=== PATIENT | male | born 1950 | race Caucasian/White ===

== ENCOUNTER 2016-12-02 20:58 | Emergency (ER) | payer OTHER ==
--- NOTE | 2016-12-02 21:21 | ERNOTE ---
Medical Problem HPI - Narrative Date of Service: 12/02/16 - General Chief Complaint: General Assessment Time Seen by Provider: 12/02/16 21:06 Source: patient, family - Immun/Allergies/Home Medications Immunizations: IMMUNIZATION HX Immunizations Up to Date Yes History of Influenza Vaccine No Hx Pneumococcal Vaccination No Allergies/Adverse Reactions: Allergies allopurinol Allergy (Verified 02/21/16 13:38) sulfamethoxazole [From Bactrim] Allergy (Verified 02/21/16 13:38) trimethoprim [From Bactrim] Allergy (Verified 02/21/16 13:38) Home Medications: HOME MEDICATIONS Albuterol Sulfate [Proair Respiclick] 90 mcg IH QID PRN 02/21/16 [Last Taken Unknown] Cholecalciferol (Vitamin D3) [Vitamin D3] 2,000 unit PO DAILY 02/21/16 [Last Taken Unknown] FLUoxetine HCL [Prozac] 40 mg PO DAILY 02/21/16 [Last Taken Unknown] Ferrous Sulfate [Iron] 325 mg PO BID 02/21/16 [Last Taken Unknown] HYDROcodone/ACETAMINOPHEN [Lortab 5-325 mg Tablet] 1 each PO Q4H PRN 02/21/16 [ Last Taken Unknown] Ibrutinib [Imbruvica] 420 mg PO DAILY 02/21/16 [Last Taken Unknown] Insulin Glargine,Hum.rec.anlog [Lantus] 20 unit SQ HS 02/21/16 [Last Taken Unknown] Sodium Bicarbonate 1,300 mg PO BID 02/21/16 [Last Taken Unknown] Insulin Aspart [Novolog] 1,000 units SQ TID 12/02/16 [Last Taken Unknown] - History of Present History Narrative: 66 year old that complains of lethargy, dyspnea with exertion, green discharge from the supra pubic catheter and diarrhea for three weeks. Diagnosed with leukemia in 2004. Also has had C diff 4-5 times previously. He is able to drink fluids but has difficulty swallowing hard foods, for several years. Timing: constant Severity: moderate Modifying Factors - (Improves): Present: other - nothing Modifying Factors - (Worsens): Present: other - exertion Review of Systems - Review of Systems Constitutional: Present: recent illness EYE: Present: no symptoms reported ENT: Present: no symptoms reported Respiratory: Present: no symptoms reported Cardiology: Present: no symptoms reported Gastrointestinal/Abdominal: Present: no symptoms reported Genitourinary: Present: See HPI Musculoskeletal: Present: no symptoms reported Skin: Present: rash - at buttocks Neurological: Present: no symptoms reported Endocrine: Present: no symptoms reported Hematologic/Lymphatic: Present: See HPI Psych: Present: no symptoms reported - Patient's Past Medical History Patient History - Medical: Diabetes Type 1, Kidney stone, UTI'S, Other Patient History - Cardiac/Respiratory: Asthma Patient History - Cancer: Leukemia, Skin Patient History - Surgical Procedures: Cancer Surgery, Other Patient History - Other: Immunosuppresive Tx >3mo - Family History Mother Family History - Medical: No pertinent hx Family History - Cardiac/Respiratory: No pertinent hx Father Family History - Medical: No pertinent hx Family History - Cardiac/Respiratory: No pertinent hx - Social History Living Situations: spouse Psych History: No pertinent hx Does anyone smoke in the home?: No Smoking Status: Never smoker Alcohol Use: none Drug Use: none - Immunizations Immunizations Up to Date: Yes Hx Pneumococcal Vaccination: No History of Influenza Vaccine: No Physical Exam - Physical Exam Narrative: Gaunt, but pleasant and jovial. General Appearance: Present: no apparent distress Eye Exam: Normal inspection: bilateral Ears, Nose, Throat: Present: normal ENT inspection Neck: Present: normal inspection Respiratory: Present: no respiratory distress Cardiovascular/Chest: Present: regular rate, rhythm Gastrointestinal/Abdominal: Present: nontender Back Exam: Present: normal inspection Extremity Exam: Present: normal inspection Neurological Exam: Present: alert, oriented Skin Exam: Present: normal color ED Progress - Results and Orders Patient's Lab Results:: I have reviewed the patient's lab results. - Vital Signs Patient's Vital Signs:: I have reviewed the patient's vital signs. Vital Signs: Vital Signs 12/02/16 21:04 Temperature 36.5 C Pulse Rate 100 Respiratory 16 Rate Blood Pressure 95/55 O2 Sat by Pulse 99 Oximetry - Progress/Reassessment Chief Complaint: General Assessment Progress:: Improved Progress Note-Subjective: 12/03/16 01:18 Feeling better after the third liter of IV fluid. Show better facial color and has more activity. The patient reports that there have been other instances where the WBC count was in the hundreds. No complaints of fevers or chills. The urine showed 4+ bacteria, which is likely to be a chronic infection of which he is asymptomatic. 12/03/16 01:45 Drinking fluids. Departure - Departure Clinical Impression: Volume depletion Disposition: Home self-care Condition: Fair Instructions: Dehydration, Adult, [id number] Print Language: Congolese Additional Instructions: Follow up with your oncologist next week. Return to the ED if you begin to feel sick or develop fevers.
[2016-12-02] MEDS ORDERED: NORMAL SALINE 1,000 ML IV ONE ×2 (21:22→23:04)
[2016-12-02 21:34] LABS: Hematocrit 35.8 % (42.0-52.0); Hemoglobin 10.2 gm/dL (13.5-18.0); Mean Cell Volume 92.3 fl (78-100); Mean Corpuscular Hemoglobin 26.3 pg (27-31); Mean Corpuscular Hgb Conc 28.5 g/dl (32-36); Mean Platelet Volume 9.2 fl (6.0-9.5); Platelet Count 243 K/mm3 (150-450); Red Blood Count 3.88 M/mm3 (4.7-6.0); Red Cell Distribution Width 17.1 % (11.5-14.0); White Blood Count 212.8 K/mm3 (4.0-10.5)
[2016-12-02 21:43] LABS: Anion Gap 19.2 mmol/L (6.8-13.8); BUN/Creatinine Ratio 17.4 (9.0-21.6); Calcium * 7.9 mg/dL (7.9-10.9); Carbon Dioxide 17.6 mmol/L (24-32.6); Estimated Creat Clear 19.5; Potassium 4.8 mmol/L (3.4-4.6)
[2016-12-02 21:59] LABS: Total Cells Counted 100
[2016-12-02 22:04] LABS: Lymphocyte 97 % (20-51); Neutrophil 3 % (42-75); Neutrophil # 6.4 K/mm3 (1.3-6.0)
[2016-12-02 22:05] LABS: Platelet Estimate Normal (NORMAL); RBC Morphology Normal (NORMAL)
[2016-12-02 22:08] LABS: Smudge Cells 10 /100 WBC (0-0)
[2016-12-02 22:09] LABS: Morphology Comment IMMATURE LYMPHOCYTES
[2016-12-02 22:15] LABS: Urine Bilirubin Negative (NEGATIVE); Urine Blood 250 /ul (NEGATIVE); Urine Ketone Negative (NEGATIVE); Urine Nitrite Negative (NEGATIVE); Urine Protein 100 mg/dL (NEGATIVE); Urine Urobilinogen Normal (NORMAL)
[2016-12-02 22:25] LABS: Urine Appearance Cloudy; Urine Bacteria 4+; Urine Color Yellow; Urine RBC None Seen /hpf (0-5); Urine WBC >50 /hpf (0-5)
[2016-12-02 23:13] LABS: Hematocrit 30.6 % (42.0-52.0); Hemoglobin 8.8 gm/dL (13.5-18.0); Mean Cell Volume 91.6 fl (78-100); Mean Corpuscular Hemoglobin 26.3 pg (27-31); Mean Corpuscular Hgb Conc 28.8 g/dl (32-36); Mean Platelet Volume 9.5 fl (6.0-9.5); Platelet Count 218 K/mm3 (150-450); Red Blood Count 3.34 M/mm3 (4.7-6.0); Red Cell Distribution Width 17.1 % (11.5-14.0)
[2016-12-02 23:27] LABS: White Blood Count 182.4 K/mm3 (4.0-10.5)
[2016-12-02 23:28] LABS: Total Cells Counted 100
[2016-12-02 23:33] LABS: Band 1 % (0-2.0); Neutrophil 3 % (42-75); Neutrophil # 5.5 K/mm3 (1.3-6.0)
[2016-12-02 23:38] LABS: Platelet Estimate Normal (NORMAL)
[2016-12-02 23:39] LABS: Anisocytosis 2+
[2016-12-02 23:41] LABS: Lymphocyte 96 % (20-51)
[2016-12-02 23:42] LABS: Smudge Cells 9 /100 WBC (0-0)
[2016-12-03] MEDS ORDERED: NORMAL SALINE 1,000 ML IV ONE (00:34)
[2016-12-03 01:45] VITALS: BP 114/59
== END 2016-12-03 01:42 | disposition home or self-care (01) ==
LOC: ER 20:58
DX: E86.0 Dehydration (principal); Z85.6 Personal history of leukemia; Z85.828 Personal history of other malignant neoplasm of skin; E10.9 Type 1 diabetes mellitus without complications; Z79.4 Long term (current) use of insulin; Z87.440 Personal history of urinary (tract) infections; Z87.442 Personal history of urinary calculi

== ENCOUNTER 2016-12-05 13:24 | Emergency (ER) | payer OTHER ==
[2016-12-05 13:41] VITALS: BP 118/62
--- NOTE | 2016-12-05 14:08 | ERNOTE ---
Medical Problem HPI - Narrative Date of Service: 12/05/16 - General Chief Complaint: General Assessment Time Seen by Provider: 12/05/16 13:49 Source: patient Exam Limitations: no limitations - Immun/Allergies/Home Medications Immunizations: IMMUNIZATION HX Immunizations Up to Date Yes History of Influenza Vaccine No Hx Pneumococcal Vaccination No Allergies/Adverse Reactions: Allergies allopurinol Allergy (Verified 12/05/16 13:41) sulfamethoxazole [From Bactrim] Allergy (Verified 12/05/16 13:41) trimethoprim [From Bactrim] Allergy (Verified 12/05/16 13:41) Home Medications: HOME MEDICATIONS Albuterol Sulfate [Proair Respiclick] 90 mcg IH QID PRN 02/21/16 [Last Taken Unknown] Cholecalciferol (Vitamin D3) [Vitamin D3] 2,000 unit PO DAILY 02/21/16 [Last Taken Unknown] FLUoxetine HCL [Prozac] 40 mg PO DAILY 02/21/16 [Last Taken Unknown] Ferrous Sulfate [Iron] 325 mg PO BID 02/21/16 [Last Taken Unknown] HYDROcodone/ACETAMINOPHEN [Lortab 5-325 mg Tablet] 1 each PO Q4H PRN 02/21/16 [ Last Taken Unknown] Ibrutinib [Imbruvica] 420 mg PO DAILY 02/21/16 [Last Taken Unknown] Insulin Glargine,Hum.rec.anlog [Lantus] 20 unit SQ HS 02/21/16 [Last Taken Unknown] Sodium Bicarbonate 1,300 mg PO BID 02/21/16 [Last Taken Unknown] Insulin Aspart [Novolog] 1,000 units SQ TID 12/02/16 [Last Taken Unknown] - History of Present History Narrative: 66-year-old male presents to the emergency room after being notified by ER provider that his lab results showed multiple infections agents in his cultures. Patient states that he still feels the same as today. He was here last time. Patient is being seen for home health and has multiple specialists that he sees [facility] the [facility]. Patient denies fever at this time. States he just feels poorly. Date (Duration): 12/05/16 Timing: getting worse Review of Systems - Review of Systems Constitutional: Present: recent illness, weakness, fatigue, malaise. Absent: fever, chills EYE: Present: no symptoms reported ENT: Present: no symptoms reported Respiratory: Present: no symptoms reported. Absent: shortness of breath, cough Cardiology: Present: no symptoms reported Gastrointestinal/Abdominal: Present: no symptoms reported, eating less, drinking less Genitourinary: Present: See HPI - bilateral nephrostomy tube, and suprapubic cath Musculoskeletal: Present: no symptoms reported Skin: Present: no symptoms reported Neurological: Present: no symptoms reported Endocrine: Present: no symptoms reported Hematologic/Lymphatic: Present: no symptoms reported Psych: Present: no symptoms reported - Patient's Past Medical History Patient History - Medical: Diabetes Type 1, Kidney stone, UTI'S, Other Patient History - Cardiac/Respiratory: Asthma Patient History - Cancer: Leukemia, Skin Patient History - Surgical Procedures: Cancer Surgery, Other Patient History - Other: Immunosuppresive Tx >3mo - Family History Mother Family History - Medical: No pertinent hx Family History - Cardiac/Respiratory: No pertinent hx Father Family History - Medical: No pertinent hx Family History - Cardiac/Respiratory: No pertinent hx - Social History Living Situations: spouse Psych History: No pertinent hx Does anyone smoke in the home?: No Smoking Status: Never smoker Have you smoked in the past 12 months: No Alcohol Use: none Drug Use: none - Immunizations Immunizations Up to Date: Yes Hx Pneumococcal Vaccination: No History of Influenza Vaccine: No Physical Exam - Physical Exam General Appearance: Present: wd/wn, alert, no apparent distress, thin, cachetic Eye Exam: Normal inspection: bilateral Ears, Nose, Throat: Present: normal ENT inspection, normal pharynx Neck: Present: normal inspection Respiratory: Present: no respiratory distress, normal breath sounds, chest nontender, lungs clear Cardiovascular/Chest: Present: regular rate, rhythm, no murmur, normal peripheral pulses Gastrointestinal/Abdominal: Present: normal bowel sounds, nontender, soft Back Exam: Present: normal inspection, normal range of motion Extremity Exam: Present: normal inspection, non-tender, no edema Neurological Exam: Present: alert, oriented, normal mood/affect, no motor/ sensory deficits Skin Exam: Present: warm/dry, pallor ED Progress - Results and Orders Patient's Lab Results:: I have reviewed the patient's lab results. Results and Orders: patient has multiple abnormal lab results, elevated WBC - Vital Signs Patient's Vital Signs:: I have reviewed the patient's vital signs. Vital Signs: Vital Signs 12/05/16 13:38 Temperature 36.8 C Pulse Rate 82 Respiratory 12 Rate Blood Pressure 118/62 O2 Sat by Pulse 99 Oximetry - Progress/Reassessment Chief Complaint: General Assessment Progress:: Unchanged Plan - Plan Plan: [facility] managed care coordinator [facility], he states that [facility] and the patient will be transferred to another facility. After speaking with her primary care provider that his admitting inpatient and he felt the patient needed a multidisciplinary team related to his CLL. Dr Molina at [facility] states she did not have the resources to accommodate this patient and that the patients needs may be best served in [place]. Patient is now being transferred to the [facility] in [place]. Report was given to Dr. Lu. Dr. Lu requested that another set of blood cultures be obtained, and the patient be given 1000 milligrams of cefepime and 1000 mg of vancomycin IV. I was also informed by the [facility] that he has a now has a positive stool sample for staph A. Departure - Departure Clinical Impression: CLL (chronic lymphocytic leukemia) Disposition: [facility] Condition: Serious
[2016-12-05 14:09] LABS: Hematocrit 28.9 % (42.0-52.0); Hemoglobin 8.3 gm/dL (13.5-18.0); Mean Cell Volume 92.9 fl (78-100); Mean Corpuscular Hemoglobin 26.7 pg (27-31); Mean Corpuscular Hgb Conc 28.7 g/dl (32-36); Platelet Count 149 K/mm3 (150-450); Red Blood Count 3.11 M/mm3 (4.7-6.0); Red Cell Distribution Width 17.6 % (11.5-14.0); White Blood Count 185.4 K/mm3 (4.0-10.5)
[2016-12-05 14:15] LABS: Total Cells Counted 100
[2016-12-05 14:19] LABS: Atypical (Reactive) Lymph 11 % (0-2); Lymphocyte 76 % (20-51); Monocyte 4 % (0-9); Neutrophil 9 % (42-75); Neutrophil # 16.7 K/mm3 (1.3-6.0)
[2016-12-05 14:20] LABS: Platelet Estimate Normal (NORMAL); RBC Morphology Normal (NORMAL)
[2016-12-05 14:22] LABS: Albumin * 2.7 gm/dl (3.4-5.0); Anion Gap 15.5 mmol/L (6.8-13.8); BUN/Creatinine Ratio 19.7 (9.0-21.6); Bilirubin, Total 0.4 mg/dL (0.0-1.1); Ca. Corrected For Albumin 8.3 mg/dL (8.4-10.2); Calcium * 7.6 mg/dL (7.9-10.9); Carbon Dioxide 18.2 mmol/L (24-32.6); Potassium 4.7 mmol/L (3.4-4.6); Total Protein 6.1 gm/dL (6.2-8.2)
[2016-12-05 14:22] LABS: Urine Bilirubin Negative (NEGATIVE); Urine Blood 50 /ul (NEGATIVE); Urine Ketone Negative (NEGATIVE); Urine Protein 100 mg/dL (NEGATIVE); Urine Specific Gravity 1.015 SP.GR. (1.005-1.030); Urine Urobilinogen Normal (NORMAL)
[2016-12-05] MEDS ORDERED: NORMAL SALINE 1,000 ML IV ONE (14:25)
[2016-12-05 14:29] LABS: Urine Appearance Clear; Urine Bacteria 1+; Urine Color Yellow; Urine Nitrite Positive (NEGATIVE); Urine WBC >50 /hpf (0-5)
[2016-12-05] MEDS ORDERED: CEFEPIME HCL 1 GM in DEXTROSE 5 % IN WATER 100 ML IV ONE ×2 (15:19)
[2016-12-05] MEDS ORDERED: VANCOMYCIN HCL 1 GM in DEXTROSE 5 % IN WATER 250 ML IV ONE ×2 (15:19)
== END 2016-12-05 16:20 | disposition short-term general hospital (02) ==
LOC: ER 13:24
DX: C91.10 Chronic lymphocytic leukemia of B-cell type not having achieved remission (principal); E10.9 Type 1 diabetes mellitus without complications; Z85.828 Personal history of other malignant neoplasm of skin

== ENCOUNTER 2016-12-20 13:06 | Emergency (ER) | payer OTHER ==
[2016-12-20 13:40] LABS: Hematocrit 31.6 % (42.0-52.0); Hemoglobin 8.7 gm/dL (13.5-18.0); Mean Cell Volume 96.3 fl (78-100); Mean Corpuscular Hemoglobin 26.5 pg (27-31); Mean Corpuscular Hgb Conc 27.5 g/dl (32-36); Mean Platelet Volume 9.6 fl (6.0-9.5); Platelet Count 145 K/mm3 (150-450); Red Blood Count 3.28 M/mm3 (4.7-6.0); Red Cell Distribution Width 20.5 % (11.5-14.0)
[2016-12-20 13:52] LABS: White Blood Count 241.2 K/mm3 (4.0-10.5)
[2016-12-20 13:53] LABS: Total Cells Counted 100
[2016-12-20 13:55] LABS: Lymphocyte 95 % (20-51); Neutrophil 5 % (42-75); Neutrophil # 12.1 K/mm3 (1.3-6.0); Platelet Estimate Normal (NORMAL); RBC Morphology Normal (NORMAL)
--- NOTE | 2016-12-20 13:58 | ERNOTE ---
Medical Problem HPI - Narrative Date of Service: 12/20/16 - General Chief Complaint: General Assessment Time Seen by Provider: 12/20/16 13:20 Source: patient, family, RN notes reviewed Exam Limitations: no limitations - Immun/Allergies/Home Medications Immunizations: IMMUNIZATION HX Immunizations Up to Date Yes History of Influenza Vaccine No Hx Pneumococcal Vaccination No Allergies/Adverse Reactions: Allergies allopurinol Allergy (Verified 12/20/16 13:14) sulfamethoxazole [From Bactrim] Allergy (Verified 12/20/16 13:14) trimethoprim [From Bactrim] Allergy (Verified 12/20/16 13:14) Home Medications: HOME MEDICATIONS Albuterol Sulfate [Proair Respiclick] 90 mcg IH QID PRN 02/21/16 [Last Taken Unknown] Cholecalciferol (Vitamin D3) [Vitamin D3] 2,000 unit PO DAILY 02/21/16 [Last Taken Unknown] FLUoxetine HCL [Prozac] 40 mg PO DAILY 02/21/16 [Last Taken Unknown] Ferrous Sulfate [Iron] 325 mg PO BID 02/21/16 [Last Taken Unknown] HYDROcodone/ACETAMINOPHEN [Lortab 5-325 mg Tablet] 1 each PO Q4H PRN 02/21/16 [ Last Taken Unknown] Ibrutinib [Imbruvica] 420 mg PO DAILY 02/21/16 [Last Taken Unknown] Insulin Glargine,Hum.rec.anlog [Lantus] 2 unit SQ HS 02/21/16 [Last Taken Unknown] Sodium Bicarbonate 1,300 mg PO BID 02/21/16 [Last Taken Unknown] Insulin Aspart [Novolog] 10 units SQ TID 12/02/16 [Last Taken Unknown] - History of Present History Narrative: Krish is a 66-year-old male who presents to the emergency department for evaluation of hyperkalemia. He was contacted by [facility] doctor [facility] and instructed to come here to have his lab work checked. He was just discharged from the [facility] on December 13. He was initially transferred from here to [facility] due to lack of bed availability at the [facility], but then was transferred to the [facility] from the [place]. He was having diarrhea and was thought to have Cdiff at that time but he did not. He was treated for a recurrent UTI. He has bilateral urostomy tubes and a suprapubic catheter. He reports that he has been gradually feeling better since he has gotten home. He was planning on going fishing this afternoon until he was told to come here. Review of Systems - Review of Systems Constitutional: Present: recent illness, fatigue, malaise, decreased activity level. Absent: fever EYE: Present: no symptoms reported ENT: Present: no symptoms reported Respiratory: Absent: shortness of breath, cough Cardiology: Absent: chest pain, palpitations, syncope, edema Gastrointestinal/Abdominal: Absent: nausea, vomiting, diarrhea Genitourinary: Present: hematuria. Absent: decreased urinary output Skin: Absent: rash, lesions Neurological: Absent: headache, dizziness/light-headedness Endocrine: Present: no symptoms reported Hematologic/Lymphatic: Present: easy bruising, easy bleeding Psych: Absent: anxiety, depressed - Patient's Past Medical History Patient History - Medical: Diabetes Type 1, Kidney stone, Renal Disease, Renal Failure, UTI'S, Other Patient History - Cardiac/Respiratory: Asthma Patient History - Cancer: Leukemia - CLL, Skin Patient History - Surgical Procedures: Cancer Surgery, Urology - Bilateral urostomy, Suprapubic catheter Patient History - Other: Immunosuppresive Tx >3mo - Family History Mother Family History - Medical: No pertinent hx Family History - Cardiac/Respiratory: No pertinent hx Father Family History - Medical: No pertinent hx Family History - Cardiac/Respiratory: No pertinent hx - Social History Living Situations: spouse Psych History: No pertinent hx Does anyone smoke in the home?: No Alcohol Use: none Drug Use: none - Immunizations Immunizations Up to Date: Yes Hx Pneumococcal Vaccination: No History of Influenza Vaccine: No Physical Exam - Physical Exam General Appearance: Present: alert, no apparent distress, thin Head Exam: Present: normal inspection Eye Exam: Normal inspection: bilateral Ears, Nose, Throat: Present: normal ENT inspection. Absent: dry mucous membranes Neck: Present: normal inspection, nontender, supple Respiratory: Present: no respiratory distress, normal breath sounds, no accessory muscle use, lungs clear Cardiovascular/Chest: Present: regular rate, rhythm, no murmur, normal peripheral pulses Gastrointestinal/Abdominal: Present: normal bowel sounds, nontender, nondistended, soft Back Exam: Present: no CVA tenderness, no vertebral tenderness, other - bilateral urostomy tubes draining urine - slight pink tinge to urine in tube on left Extremity Exam: Present: normal inspection, normal range of motion, no edema Neurological Exam: Present: alert, oriented, normal mood/affect, no motor/ sensory deficits Skin Exam: Present: normal color, warm/dry ED Progress - Results and Orders Patient's Lab Results:: I have reviewed the patient's lab results. Results and Orders: Laboratory Tests 12/20/16 12/20/16 12/20/16 13:32 13:32 14:42 WBC 241.2 H RBC 3.28 L Hgb 8.7 L Hct 31.6 L Plt Count 145 L Neutrophils % (Manual) 5 L Lymphocytes % (Manual) 95 H Neutrophils # (Manual) 12.1 H Lymphocytes # (Manual) 229.1 H Sodium 141 Plasma Sodium 141 Potassium 5.9 H D Chloride 110 H Carbon Dioxide 21.0 L Anion Gap 15.9 H BUN 62 H Creatinine 2.64 H Est GFR (Non-Af Amer) 26 L BUN/Creatinine Ratio 23.5 H Random Glucose 110 Calcium 7.6 L Calcium Adj for Albumin 7.8 L Total Bilirubin 0.5 AST 16 ALT 20 Alkaline Phosphatase 119 Total Protein 6.7 Albumin 3.3 L Urine Color Yellow Urine Appearance Cloudy Urine pH 6.0 Ur Specific [place] 1.020 Urine Protein 100 H Urine Glucose (UA) Negative Urine Ketones Negative Urine Blood 250 H Urine Nitrate Negative Urine Bilirubin Negative Prot Sulfosalicylic Acd 2+ H Urine Urobilinogen Normal Ur Leukocyte Esterase 500 H Urine RBC 25-50 H Urine WBC 10-25 H Ur Epithelial Cells Trace Urine Bacteria 1+ H Urine Culture Comments Culture to follow 12/20/16 17:34 WBC RBC Hgb Hct Plt Count Neutrophils % (Manual) Lymphocytes % (Manual) Neutrophils # (Manual) Lymphocytes # (Manual) Sodium Plasma Sodium Potassium 5.0 H Chloride Carbon Dioxide Anion Gap BUN Creatinine Est GFR (Non-Af Amer) BUN/Creatinine Ratio Random Glucose Calcium Calcium Adj for Albumin Total Bilirubin AST ALT Alkaline Phosphatase Total Protein Albumin Urine Color Urine Appearance Urine pH Ur Specific Gates Urine Protein Urine Glucose (UA) Urine Ketones Urine Blood Urine Nitrate Urine Bilirubin Prot Sulfosalicylic Acd Urine Urobilinogen Ur Leukocyte Esterase Urine RBC Urine WBC Ur Epithelial Cells Urine Bacteria Urine Culture Comments - Vital Signs Patient's Vital Signs:: I have reviewed the patient's vital signs. Vital Signs: Vital Signs 12/20/16 13:08 Temperature 37.1 C Pulse Rate 74 Respiratory 12 Rate Blood Pressure 94/56 O2 Sat by Pulse 96 Oximetry - EKG EKG: NSR EKG read: Reviewed by me - Progress/Reassessment Chief Complaint: General Assessment Progress:: Unchanged Progress Note-Subjective: 12/20/16 14:53 The patient has a potassium of 5.9 today. This is what it was yesterday when it was checked by his PCP. His creatinine has improved slightly from 2.9 to 2.64. His white blood cell count however has increased from 182,000 when he was last here on December 05 to 241,000 today. His primary, Dr. West, was contacted as he had requested when he directed the patient to come here. A message was left. [facility] was then contacted regarding transferring the patient there for care but they currently do not have any beds for placement. I then contacted the [facility] who are also experiencing difficulty with bed availability. As the patient is currently stable, it was requested by Dr. Lu (ER Triage) that we hold the patient here in our emergency department until an inpatient bed will become available for him at the [facility]. At that point we will be contacted regarding placement. In the meantime, the patient is to receive calcium gluconate, D50, and IV insulin for his hyperkalemia. He is also to get back to back albuterol treatments. 12/20/16 16:45 Patient reported feeling like he was "bottoming out." Blood glucose obtained and was 38. [place] juice given and another amp of D50. Glucose jodie to 199 shortly afterward and symptoms have improved. Dr. Olmos was contacted regarding admitting the patient here for observation as it is unclear when a bed will become available at [facility] and he needs close monitoring d/t his labile blood sugar and hyperkalemia. He requested that oncology be consulted for guidance on managing his leukemia before he would consider keeping the patient here temporarily. consult was contacted by nurse business transformation manager. Awaiting a call back from their on-call oncologist. Plan - Plan Plan: Patient transferred by ambulance to [facility] as a bed did become available while we were awaiting a call back from oncology consult. His potassium had improved and was 5.0 on a repeat draw just before transfer. The patient was transferred in stable condition. Departure - Departure Clinical Impression: CLL (chronic lymphocytic leukemia), Hyperleukocytosis, Acute hyperkalemia, Urinary tract infection, recurrent Diabetes mellitus type 1 Qualifiers: Diabetes mellitus complication status: with kidney complications Diabetes mellitus complication detail: with chronic kidney disease Chronic kidney disease stage: unspecified stage Qualified Code(s): E10.22 - Type 1 diabetes mellitus with diabetic chronic kidney disease; N18.9 - Chronic kidney disease, unspecified Chronic renal failure Qualifiers: Chronic kidney disease stage: unspecified stage Qualified Code(s): N18.9 - Chronic kidney disease, unspecified Disposition: [facility] Condition: Stable
[2016-12-20 14:00] LABS: Albumin * 3.3 gm/dl (3.4-5.0); Anion Gap 15.9 mmol/L (6.8-13.8); BUN/Creatinine Ratio 23.5 (9.0-21.6); Bilirubin, Total 0.5 mg/dL (0.0-1.1); Ca. Corrected For Albumin 7.8 mg/dL (8.4-10.2); Calcium * 7.6 mg/dL (7.9-10.9); Potassium 5.9 mmol/L (3.4-4.6); Total Protein 6.7 gm/dL (6.2-8.2)
[2016-12-20] MEDS ORDERED: ALBUTEROL SULFATE 2.5 MG/3 ML VIAL.NEB IH ONE (14:13)
[2016-12-20] MEDS ORDERED: CALCIUM GLUCONATE 4.65 MEQ/10 ML VIAL IV ONE ×2 (14:14→14:44)
[2016-12-20] MEDS ORDERED: INSULIN REGULAR, HUMAN 100 UNITS/ML VIAL IV ONE (14:14)
[2016-12-20] MEDS ORDERED: DEXTROSE 50%-WATER 50 ML SYRG IV ONE ×2 (14:14→16:26)
[2016-12-20] MEDS ORDERED: ALBUTEROL SULFATE 2.5 MG/0.5 ML VIAL.NEB IH ONE ×2 (14:43→14:58)
[2016-12-20] MEDS ORDERED: DEXTROSE 50%-WATER 50 ML SYRG ONE ×2 (14:44→16:25)
[2016-12-20] MEDS ORDERED: INSULIN REGULAR, HUMAN 100 UNITS/ML VIAL ONE (14:45)
[2016-12-20] MEDS ORDERED: ALBUTEROL SULFATE/IPRATROPIUM 3 ML NEBU IH ONE (14:57)
[2016-12-20 15:37] LABS: Urine Bilirubin Negative (NEGATIVE); Urine Blood 250 /ul (NEGATIVE); Urine Ketone Negative (NEGATIVE); Urine Nitrite Negative (NEGATIVE); Urine Protein 100 mg/dL (NEGATIVE); Urine Urobilinogen Normal (NORMAL)
[2016-12-20 15:52] LABS: Urine Appearance Cloudy; Urine Bacteria 1+; Urine Color Yellow; Urine RBC 25-50 /hpf (0-5)
[2016-12-20 17:06] VITALS: BP 110/53
[2016-12-20] MEDS ORDERED: VANCOMYCIN HCL 1 GM in DEXTROSE 5 % IN WATER 250 ML IV ONE ×2 (17:22)
== END 2016-12-20 17:45 | disposition short-term general hospital (02) ==
LOC: ER 13:06
DX: C91.10 Chronic lymphocytic leukemia of B-cell type not having achieved remission (principal); D72.828 Other elevated white blood cell count; E87.5 Hyperkalemia; N39.0 Urinary tract infection, site not specified; E10.22 Type 1 diabetes mellitus with diabetic chronic kidney disease; N18.9 Chronic kidney disease, unspecified

== ENCOUNTER 2017-01-01 15:58 | Inpatient (IN) | payer OTHER ==
[2017-01-01] MEDS ORDERED: NORMAL SALINE 1,000 ML IV ONE (16:25)
[2017-01-01 16:52] LABS: Hematocrit 33.9 % (42.0-52.0); Hemoglobin 9.4 gm/dL (13.5-18.0); Mean Cell Volume 95.2 fl (78-100); Mean Corpuscular Hemoglobin 26.4 pg (27-31); Mean Corpuscular Hgb Conc 27.7 g/dl (32-36); Platelet Count 161 K/mm3 (150-450); Red Blood Count 3.56 M/mm3 (4.7-6.0); Red Cell Distribution Width 19.8 % (11.5-14.0)
[2017-01-01 16:54] LABS: White Blood Count 266.3 K/mm3 (4.0-10.5)
[2017-01-01 16:59] LABS: Total Cells Counted 100
[2017-01-01 17:03] LABS: Atypical (Reactive) Lymph 8 % (0-2); Lymphocyte 86 % (20-51); Monocyte 4 % (0-9); Neutrophil 2 % (42-75); Neutrophil # 5.3 K/mm3 (1.3-6.0)
[2017-01-01 17:04] LABS: Platelet Estimate Normal (NORMAL); RBC Morphology Normal (NORMAL)
[2017-01-01 17:09] LABS: Troponin I Less than 0.017 ng/ml (0.00-0.10)
[2017-01-01 17:11] LABS: BUN/Creatinine Ratio 21.5 (9.0-21.6); Blood Urea Nitrogen 70 mg/dL (6-23); Chloride 107 mmol/L (97-106); Glucose * 273 mg/dL (70-110); Potassium 4.5 mmol/L (3.4-4.6); Sodium 138 mmol/L (132-142)
[2017-01-01 17:12] LABS: ALT 9 U/L (19-67); AST 6 U/L (0-48); Albumin * 3.1 gm/dl (3.4-5.0); Alkaline Phosphatase * 106 U/L (50-170); Anion Gap 22.3 mmol/L (6.8-13.8); BNP * 533 pg/mL (5-175); Bilirubin, Total 0.4 mg/dL (0.0-1.1); Ca. Corrected For Albumin 8.5 mg/dL (8.4-10.2); Calcium * 8.1 mg/dL (7.9-10.9); Carbon Dioxide 13.2 mmol/L (24-32.6); Total Protein 6.8 gm/dL (6.2-8.2)
[2017-01-01 17:16] LABS: Urine Bilirubin Negative (NEGATIVE); Urine Blood 50 /ul (NEGATIVE); Urine Ketone Negative (NEGATIVE); Urine Protein 100 mg/dL (NEGATIVE); Urine Urobilinogen Normal (NORMAL)
[2017-01-01 17:23] LABS: Urine Appearance Clear; Urine Bacteria 1+; Urine Color Yellow; Urine Nitrite Positive (NEGATIVE)
--- NOTE | 2017-01-01 17:50 | ERNOTE ---
Dyspnea - Date Date of Service: 01/01/17 - General Time Seen by Provider: 01/01/17 16:06 Source: patient Exam Limitations: no limitations - Immun/Allergies/Home Medications Immunizations: IMMUNIZATION HX Immunizations Up to Date Yes History of Influenza Vaccine Yes Hx Pneumococcal Vaccination Yes Allergies/Adverse Reactions: Allergies allopurinol Allergy (Verified 01/01/17 16:17) sulfamethoxazole [From Bactrim] Allergy (Verified 01/01/17 16:17) trimethoprim [From Bactrim] Allergy (Verified 01/01/17 16:17) Home Medications: HOME MEDICATIONS Albuterol Sulfate [Proair Respiclick] 90 mcg IH QID PRN 02/21/16 [Last Taken Unknown] Cholecalciferol (Vitamin D3) [Vitamin D3] 2,000 unit PO DAILY 02/21/16 [Last Taken Unknown] FLUoxetine HCL [Prozac] 40 mg PO DAILY 02/21/16 [Last Taken Unknown] Ferrous Sulfate [Iron] 325 mg PO BID 02/21/16 [Last Taken Unknown] HYDROcodone/ACETAMINOPHEN [Lortab 5-325 mg Tablet] 1 each PO Q4H PRN 02/21/16 [ Last Taken Unknown] Ibrutinib [Imbruvica] 420 mg PO DAILY 02/21/16 [Last Taken Unknown] Insulin Glargine,Hum.rec.anlog [Lantus] 2 unit SQ HS 02/21/16 [Last Taken Unknown] Sodium Bicarbonate 1,300 mg PO BID 02/21/16 [Last Taken Unknown] Insulin Aspart [Novolog] 10 units SQ TID 12/02/16 [Last Taken Unknown] Fluconazole [Diflucan] 200 mg PO DAILY 01/01/17 [Last Taken Unknown] - History of Present Illness Narrative: Patient presents to the ED with diarrhea for a couple of days and SOB with standing. He has noticed that when he stands he feels sob. No fever. Minimal cough. No vomiting but feels like solids get hung up when he swallows. Minimal ST. Has not seen anyone else for this. No CP. No pleuritic pain. Severity: moderate Initiating event: Reports: unknown Frequency of episodes: Reports: no prior episodes Modifying Factors - (Improves): Reports: rest Modifying Factors (Worsens): Reports: other - standing Associated Symptoms-Dyspnea: Denies: fever/chills Prior Treatment: Denies: recently seen Review of Systems - Review of Systems Constitutional: Absent: fever Respiratory: Present: shortness of breath Cardiology: Absent: chest pain Gastrointestinal/Abdominal: Absent: vomiting, abdominal pain Genitourinary: Present: See HPI All Other Systems: All systems neg except as marked - Patient's Past Medical History Patient History - Medical: Diabetes Type 1, Kidney stone, Renal Disease, Renal Failure, UTI'S, Other Patient History - Cardiac/Respiratory: Asthma Patient History - Cancer: Leukemia, Skin Patient History - Surgical Procedures: Cancer Surgery, Urology Patient History - Other: Immunosuppresive Tx >3mo - Family History Mother Family History - Medical: No pertinent hx Family History - Cardiac/Respiratory: No pertinent hx Father Family History - Medical: No pertinent hx Family History - Cardiac/Respiratory: No pertinent hx - Social History Living Situations: home Psych History: No pertinent hx Does anyone smoke in the home?: No Smoking Status: Never smoker Alcohol Use: none Drug Use: none - Immunizations Immunizations Up to Date: Yes Hx Pneumococcal Vaccination: Yes History of Influenza Vaccine: Yes Physical Exam - Physical Exam General Appearance: Present: alert, no apparent distress Head Exam: Present: normal inspection, no evidence of injury Eye Exam: Normal inspection: bilateral, PERRL: bilateral Ears, Nose, Throat: Present: dry mucous membranes Neck: Present: normal inspection Respiratory: Present: no respiratory distress, normal breath sounds, no accessory muscle use, lungs clear Cardiovascular/Chest: Present: normal peripheral pulses, tachycardia Gastrointestinal/Abdominal: Present: normal bowel sounds, nontender, soft, other - palpable spleen, non-tender Back Exam: Present: no CVA tenderness Extremity Exam: Present: non-tender Neurological Exam: Present: alert, normal mood/affect, no motor/sensory deficits Skin Exam: Present: normal color, warm/dry ED Progress - Results and Orders Patient's Lab Results:: I have reviewed the patient's lab results. - Vital Signs Patient's Vital Signs:: I have reviewed the patient's vital signs. Vital Signs: Vital Signs 01/01/17 01/01/17 01/01/17 16:00 17:09 17:12 Temperature 37.0 C Pulse Rate 100 84 84 Respiratory 24 H 23 H Rate Blood Pressure 117/70 97/71 O2 Sat by Pulse 97 98 Oximetry - EKG EKG read: Interp. by me EKG Comments: Sinus tachycardia, rate 101. non-specific ST/T wave changes, no STEMI. - X-Ray X-Ray #1 X-Ray: chest Interpretation: Interp. by me X-ray Comments: No acute process - Progress/Reassessment Chief Complaint: Dyspnea Progress Note-Subjective: 01/01/17 17:48 Clinically dehydration and UTI. [facility]. D/W Dr Spann who will admit. IV ABx given. Pt agreeable and questions answered. Departure Clinical Impression: MARTA (acute kidney injury), UTI (urinary tract infection), Dehydration - Departure Disposition: [facility] Condition: Stable
[2017-01-01] MEDS ORDERED: HYDROcodone/ACETAMINOPHEN 1 EACH TABLET PO PRN (20:26)
--- NOTE | 2017-01-01 20:33 | HP ---
Chief Complaint - Chief Complaint Date of Service: 01/01/17 Time of Service: 20:31 Chief Complaint: "Weakness, Diarrhea, SOB.". Source of HPI- Pt; reliable, pt's spouse Nancy, ER provider report. History of Present Illness: Mr. Henson is a 66-yr-old WM pt who normally receives most of his medical care at the [facility] in [place]. His PMH involves: Anemia, C-diff, Chronic Lymphocytic Leukemia ( currently on Ibrutinib, since 2013), CKD Stage III, DM Type I, Degenerative disc joint disease, Diverticulits, Kidney Stone s/p RT & LT Nephrostomy tubes and Suprapubic catheter 2015, Peripheral Neuropathy, Recurrent UTIs. Pt reports that he has had diarrhea that has been going on for about 2 months. But for the the last 4-5 days, he states that he has had progressive weakness & SOB. He states that he was seen at the [facility] ER on following advise from his PCP about his labwork that needed to be rechecked. He was found to have Hyperkalemia and he was transferred to the [facility] as there was no bed availability at the [facility]. Pt's Spouse Nancy, reports that while at the [facility], Mr. Henson was treated with "Strong antibiotics" but is uncertain about the type of antibiotic and the reason for treatment. She states that he has received numerous treatments with antibiotics due to recurrent UTI and was last hospitalized for UTI at the [facility] in December 2016. Mr. Henson reports that his diarrhea is accompanied by abdominal pain at times. He denies nausea, but had some vomiting once yesterday. He states that he cannot tolerate solid foods which causes him to have more diarrhea and abdominal pain, but he does well with the liquids. However, he denies fevers and chills. During evaluation at the ED [facility], his lab-work was remarkable for Acute on Chronic Kidney Disease, UTI & High WBC. His stool also tested positive for C-diff. The ERP spoke with the [facility] and there were no beds available [facility]. He will be admitted under observation status due to Dehydration and for IV Antibiotics until there is availability at the [facility] hospital. - Patient's Past Medical History Patient History - Medical: Anemia, Diabetes Type 1, Kidney stone, Renal Disease , Renal Failure, UTI'S, Other - C-diff, Chronic Lymphocytic Leukemia, Degenerative disc joint disease, Diverticulits, Kidney Stone s/p RT & LT Nephrostomy tubes and Suprapubic catheter 2016, Peripheral Neuropathy, Recurrent UTIs. Patient History - Cardiac/Respiratory: No pertinent hx Patient History - Cancer: Leukemia - CLL, Skin Patient History - Surgical Procedures: Cancer Surgery, Urology - RT & LT nephrostomy tubes. Patient History - Other: Immunosuppresive Tx >3mo - Family History Mother Family History - Medical: No pertinent hx Family History - Cardiac/Respiratory: No pertinent hx Father Family History - Medical: No pertinent hx Family History - Cardiac/Respiratory: No pertinent hx - Social History Living Situations: spouse Psych History: No pertinent hx Does anyone smoke in the home?: No Smoking Status: Never smoker Have you smoked in the past 12 months: No Alcohol Use: none Drug Use: none - Immunizations Immunizations Up to Date: Yes Hx Pneumococcal Vaccination: Yes History of Influenza Vaccine: Yes Review Of Systems (GEN) - Review of Systems Generalized/Overall Review: Present: Weakness, Malaise, Fatigue, Weight loss. Absent: Chills, Fever, Diaphoresis EENTM: Absent: Eye Pain, Blurred Vision Respiratory: Present: Shortness of Breath. Absent: Cough, Orthopnea, Stridor Cardiac: Absent: Chest Pain, Edema, Palpitations, Syncope Abdominal: Present: Nausea, Vomiting, Abdominal Pain, Diarrhea. Absent: Hematemesis, Constipation, Melena, Bright blood from rectum Genitourinary: Present: Retention. Absent: Burning, Itching, Urgency, Hematuria Musculoskeletal: Absent: Joint Pain, Back Pain, Joint Swelling, Muscle Pain Neurological: Absent: Headache, Anxiety, Depressed, Emotional Problems Skin: Present: Dryness. Absent: Lesions, Lumps Endocrine: Absent: Intolerance to Cold, Intolerance to Heat, Increased Thirst Misc: All systems neg except as marked Immunizations: IMMUNIZATION HX Immunizations Up to Date Yes History of Influenza Vaccine Yes Hx Pneumococcal Vaccination Yes Allergies/Adverse Reactions: Allergies Allergy/AdvReac Type Severity Reaction Status Date / Time allopurinol Allergy Verified 01/01/17 16:17 sulfamethoxazole Allergy Verified 01/01/17 16:17 [From Bactrim] trimethoprim [From Bactrim] Allergy Verified 01/01/17 16:17 Home Medications: HOME MEDICATIONS Albuterol Sulfate [Proair Respiclick] 90 mcg IH QID PRN 02/21/16 [Last Taken Unknown] Cholecalciferol (Vitamin D3) [Vitamin D3] 2,000 unit PO DAILY 02/21/16 [Last Taken Unknown] FLUoxetine HCL [Prozac] 40 mg PO DAILY 02/21/16 [Last Taken Unknown] Ferrous Sulfate [Iron] 325 mg PO BID 02/21/16 [Last Taken Unknown] HYDROcodone/ACETAMINOPHEN [Lortab 5-325 mg Tablet] 1 each PO Q4H PRN 02/21/16 [ Last Taken Unknown] Ibrutinib [Imbruvica] 420 mg PO DAILY 02/21/16 [Last Taken Unknown] Insulin Glargine,Hum.rec.anlog [Lantus] 2 unit SQ HS 02/21/16 [Last Taken Unknown] Sodium Bicarbonate 1,300 mg PO BID 02/21/16 [Last Taken Unknown] Insulin Aspart [Novolog] 10 units SQ TID 12/02/16 [Last Taken Unknown] Fluconazole [Diflucan] 200 mg PO DAILY 01/01/17 [Last Taken Unknown] Exam - Exam Vital Signs: Vital Signs - Last Taken Temp 36.8 C 01/01/17 18:40 Pulse 89 01/01/17 18:40 Resp 18 01/01/17 18:40 BP 119/67 01/01/17 18:40 Pulse Ox 100 01/01/17 18:40 Constitutional: Present: Alert, Oriented x3, Cooperative, Mild distress ENT Exam: Present: normal ENT inspection, hearing grossly normal, dry mucous membranes. Absent: nasal drainage, pharyngeal erythema Eye Exam: bilateral eye: normal inspection, PERRL Neck: Present: full range of motion, supple, normal inspection Back Exam: Present: normal inspection, no CVA tenderness, other - RT & LT Nephrostomy tube sites. Breasts: Present: Exam deferred Respiratory: Present: chest non-tender, lungs clear, normal breath sounds Cardiovascular/Chest: Present: normal peripheral pulses, regular rate, rhythm, no chest tenderness, no edema, no murmur Abdomen: Present: Normal bowel sounds, soft, nontender /Rectal: Present: Other - Suprapubic catheter Extremity: Present: normal range of motion, non-tender, normal inspection Skin Exam: Present: warm/dry, no cyanosis Lymphatic: Present: no adenopathy Neurologic: Present: alert, normal mood/affect, oriented x 3 Appearance: Present: appropriate appearance, appropriate insight Eye contact: Present: cooperative, good eye contact, normal speech Thoughts: Present: normal thought pattern, no apparent hallucination Diagnostic Studies: Laboratory Results WBC 266.3 K/mm3 (4.0-10.5) H 01/01/17 16:25 RBC 3.56 M/mm3 (4.7-6.0) L 01/01/17 16:25 Hgb 9.4 gm/dL (13.5-18.0) L 01/01/17 16:25 Hct 33.9 % (42.0-52.0) L 01/01/17 16:25 MCV 95.2 fl (78-100) 01/01/17 16:25 MCH 26.4 pg (27-31) L 01/01/17 16:25 MCHC 27.7 g/dl (32-36) L 01/01/17 16:25 RDW 19.8 % (11.5-14.0) H 01/01/17 16:25 Plt Count 161 K/mm3 (150-450) 01/01/17 16:25 MPV 10.0 fl (6.0-9.5) H 01/01/17 16:25 Neutrophils % (Manual) 2 % (42-75) L 01/01/17 16:25 Lymphocytes % (Manual) 86 % (20-51) H 01/01/17 16:25 Monocytes % (Manual) 4 % (0-9) 01/01/17 16:25 Neutrophils # (Manual) 5.3 K/mm3 (1.3-6.0) 01/01/17 16:25 Lymphocytes # (Manual) 229.0 k/mm3 (1.5-3.5) H 01/01/17 16:25 Monocytes # (Manual) 10.7 k/mm3 (0.0-1.0) H 01/01/17 16:25 Atypic/Reactive Lymphs 8 % (0-2) H 01/01/17 16:25 Platelet Estimate Normal (NORMAL) 01/01/17 16:25 RBC Morphology Normal (NORMAL) 01/01/17 16:25 Sodium 138 mmol/L (132-142) 01/01/17 16:40 Plasma Sodium 141 mmol/L (130-142) 01/01/17 16:40 Potassium 4.5 mmol/L (3.4-4.6) 01/01/17 16:40 Chloride 107 mmol/L (97-106) H 01/01/17 16:40 Carbon Dioxide 13.2 mmol/L (24-32.6) L 01/01/17 16:40 Anion Gap 22.3 mmol/L (6.8-13.8) H 01/01/17 16:40 BUN 70 mg/dL (6-23) H 01/01/17 16:40 Creatinine 3.26 mg/dL (0.4-1.4) H D 01/01/17 16:40 Est GFR (Non-Af Amer) 20 mL/min (60-130) L D 01/01/17 16:40 BUN/Creatinine Ratio 21.5 (9.0-21.6) 01/01/17 16:40 Random Glucose 273 mg/dL (70-110) H 01/01/17 16:40 Lactic Acid, Venous 1.5 mmol/L (0.4-1.9) 01/01/17 16:40 Calcium 8.1 mg/dL (7.9-10.9) 01/01/17 16:40 Calcium Adj for Albumin 8.5 mg/dL (8.4-10.2) 01/01/17 16:40 Total Bilirubin 0.4 mg/dL (0.0-1.1) 01/01/17 16:40 AST 6 U/L (0-48) 01/01/17 16:40 ALT 9 U/L (19-67) L 01/01/17 16:40 Alkaline Phosphatase 106 U/L (50-170) 01/01/17 16:40 Troponin I Less than 0.017 ng/ml (0.00-0.10) 01/01/17 16:40 B-Natriuretic Peptide 533 pg/mL (5-175) H 01/01/17 16:40 Total Protein 6.8 gm/dL (6.2-8.2) 01/01/17 16:40 Albumin 3.1 gm/dl (3.4-5.0) L 01/01/17 16:40 Urine Color Yellow 01/01/17 16:35 Urine Appearance Clear 01/01/17 16:35 Urine pH 6.0 pH (5.0-7.0) 01/01/17 16:35 Ur Specific [place] 1.020 SP.GR. (1.005-1.030) 01/01/17 16:35 Urine Protein 100 mg/dL (NEGATIVE) H 01/01/17 16:35 Urine Glucose (UA) Negative mg/dL (NEGATIVE) 01/01/17 16:35 Urine Ketones Negative mg/dL (NEGATIVE) 01/01/17 16:35 Urine Blood 50 /ul (NEGATIVE) H 01/01/17 16:35 Urine Nitrate Positive (NEGATIVE) H 01/01/17 16:35 Urine Bilirubin Negative mg/dl (NEGATIVE) 01/01/17 16:35 Prot Sulfosalicylic Acd QNS 01/01/17 16:35 Urine Urobilinogen Normal EU/dl (NORMAL) 01/01/17 16:35 Ur Leukocyte Esterase 100 /ul (NEGATIVE) H 01/01/17 16:35 Urine RBC 10-25 /hpf (0-5) H 01/01/17 16:35 Urine WBC 10-25 /hpf (0-5) H 01/01/17 16:35 Ur Epithelial Cells 0-5 /hpf (0-5) 01/01/17 16:35 Urine Bacteria 1+ (NONE) H 01/01/17 16:35 Urine Culture Comments Culture to follow 01/01/17 16:35 Group A Strep Rapid Negative (NEGATIVE) 01/01/17 16:35 Assessment/Plan - Assessment/Plan (1) C. difficile diarrhea Assessment: The pt reported ongoing diarrhea x 2 months. The diarhhea was thought to be infectious in nature at the [facility] but the C-Diff was negative. He has received treatment with Antibiotics for recurrent UTIs in the past as well as most recently in December 2016 according to spouse. Will request for medical records from the [facility]. Tonight's test for stool showed he was positive for the C-diff. Will start him Flagyl 500mg IV t.i.d. He requires antibotics due to a primary infection from the UTI and therefore will continue with Rocephin and avoid other classes of Antibiotics that have been implicated with Antibiotic- associated CDI. He will continue with the CDI treatment throughout the antibiotics use. He shall remain in contact precautions. Problem: Acute (2) UTI (urinary tract infection) Assessment: The UA collected at the ED showed UTI presence but does not specify the source collection as he has RT & LT nephrostomy tubes draining into kim bags and also a suprapubic catheter. Obtain another sample from the Suprapubic catheter. Will continue with Rocephin until urine culture results. Problem: Acute (3) [id number] kidney injury Assessment: Pt has a history of CKD stage III, probably caused by DM I. Pt noted to have a BUN/CR of 70/3.26 and was likely worsened by the dehydration from the Diarrhea and hypovolemic volume status. Will hydrate gently with IVF. Monitor BMP in am. Problem: Acute (4) Dehydration Problem: Acute (5) history of complicated UTI Assessment: Urine sample collected from RT nephrostomy tube at the ED was high in WBC and he received Rocephin at the ED. Will collect from the Suprapubic catheter as well. Will continue with Rocephin until Urine culture results, IVF hydration. Monitor CBC in am. Problem: Acute (6) CLL (chronic lymphocytic leukemia) Assessment: Continue Ibrutinib. CBC with diff in am. Will need hematology consult and therefore transfer to the [facility] would be necessary as there is a wider multidisciplinary team of specialists that can serve his extensive medical needs. Problem: Chronic (7) Chronic kidney disease (CKD) Assessment: Continue Bicarb Supplementation. Laboratory Tests 02/21/16 02/22/16 02/23/16 14:28 05:00 07:42 BUN 48 H 36 H Creatinine 2.75 H 2.52 H 1.97 H D 12/02/16 12/05/16 12/20/16 21:30 14:00 13:32 BUN 69 H D 45 H 62 H Creatinine 3.96 H D 2.28 H D 2.64 H 01/01/17 16:40 BUN 70 H Creatinine 3.26 H D Problem: Chronic Qualifiers: Chronic kidney disease stage: stage 3 (moderate) Qualified Code(s): N18.3 - Chronic kidney disease, stage 3 (moderate) (8) Diabetes mellitus type 1 Assessment: Blood glucose screening ACHS. Continue SSI & Long acting insulin, and Carb consistent diet. Problem: Chronic Qualifiers: Diabetes mellitus complication status: with kidney complications Diabetes mellitus complication detail: with chronic kidney disease Chronic kidney disease stage: unspecified stage Qualified Code(s): E10.22 - Type 1 diabetes mellitus with diabetic chronic kidney disease; N18.9 - Chronic kidney disease, unspecified (9) Nephrostomy status Problem: Chronic (10) Elevated brain natriuretic peptide (BNP) level Assessment: Noted to have an elevated BNP of 533. The CXR did not show any sign of acute cardiopulmonary process. He reports feeling SOB with activity, but he has no sign of fluid overload- peripheral edema or rales on LS. Monitor closely given the IVF hydration he is receiving. Problem: Acute
[2017-01-01] MEDS: NORMAL SALINE 1,000 ML IV PRN (20:46)
[2017-01-01] MEDS ORDERED: ALBUTEROL SULFATE 60 PUFF INHALER IH PRN (20:51)
[2017-01-01] MEDS: INSULIN GLARGINE,HUM.REC.ANLOG 100 UNITS/ML VIAL SC SCH (21:14)
[2017-01-01] MEDS: FERROUS SULFATE 325 MG TABLET PO SCH (21:27)
[2017-01-01] MEDS: metroNIDAZOLE/SODIUM CHLORIDE 500 MG/100 ML BAG IV SCH (22:13)
[2017-01-01] MEDS: SODIUM BICARBONATE 650 MG TABLET PO SCH (22:18)
[2017-01-02 04:17] LABS: Urine Bilirubin Negative (NEGATIVE); Urine Blood 250 /ul (NEGATIVE); Urine Ketone Negative (NEGATIVE); Urine Protein 100 mg/dL (NEGATIVE); Urine Specific Gravity 1.015 SP.GR. (1.005-1.030); Urine Urobilinogen Normal (NORMAL)
[2017-01-02 04:18] LABS: Urine Nitrite Positive (NEGATIVE)
[2017-01-02 04:19] LABS: Urine Appearance Turbid; Urine Bacteria 4+; Urine Color Pale Yellow; Urine WBC >50 /hpf (0-5)
[2017-01-02] MEDS: metroNIDAZOLE/SODIUM CHLORIDE 500 MG/100 ML BAG IV SCH ×3 (04:45→20:18)
[2017-01-02 05:56] LABS: Hematocrit 27.6 % (42.0-52.0); Mean Cell Volume 93.9 fl (78-100); Mean Corpuscular Hemoglobin 27.2 pg (27-31); Mean Platelet Volume 10.4 fl (6.0-9.5); Platelet Count 138 K/mm3 (150-450); Red Blood Count 2.94 M/mm3 (4.7-6.0); Red Cell Distribution Width 19.2 % (11.5-14.0)
[2017-01-02 06:01] LABS: Total Cells Counted 100
[2017-01-02 06:10] LABS: Anion Gap 20.4 mmol/L (6.8-13.8); BUN/Creatinine Ratio 24.5 (9.0-21.6); Calcium * 7.4 mg/dL (7.9-10.9); Carbon Dioxide 12.4 mmol/L (24-32.6); Estimated Creat Clear 27.8; Potassium 3.8 mmol/L (3.4-4.6)
[2017-01-02 06:17] LABS: Atypical (Reactive) Lymph 15 % (0-2); Band 2 % (0-2.0); Lymphocyte 82 % (20-51); Monocyte 1 % (0-9)
[2017-01-02 06:18] LABS: Hypochromia 1+; Macrocytosis 2+; Platelet Estimate Decreased (NORMAL)
[2017-01-02] MEDS ORDERED: ALBUTEROL SULFATE 2.5 MG/3 ML VIAL.NEB IH PRN (06:21)
[2017-01-02] MEDS: INSULIN ASPART 100 UNITS/ML VIAL SC SCH ×3 (07:22→17:01)
[2017-01-02] MEDS: NORMAL SALINE 1,000 ML IV PRN ×2 (07:25→16:59)
[2017-01-02 08:49] LABS: Phosphorus 4.3 mg/dL (2.2-4.2); Uric Acid 8.7 mg/dL (2.6-7.2)
[2017-01-02] MEDS: CHOLECALCIFEROL 1,000 UNIT CAPSULE PO SCH (09:08)
[2017-01-02] MEDS: FLUoxetine HCL 20 MG CAPSULE PO SCH (09:08)
[2017-01-02] MEDS: SODIUM BICARBONATE 650 MG TABLET PO SCH ×2 (09:09→20:18)
[2017-01-02] MEDS: FLUCONAZOLE 200 MG TABLET PO SCH (09:09)
[2017-01-02] MEDS: FERROUS SULFATE 325 MG TABLET PO SCH ×2 (09:09→20:18)
[2017-01-02] MEDS: PATIENT'S OWN MEDICATION 1 DOSE DOSE PO SCH (11:43)
[2017-01-02] MEDS: SACCHAROMYCES BOULARDII 250 MG CAPSULE PO SCH ×2 (11:45→20:18)
[2017-01-02] MEDS: INSULIN GLARGINE,HUM.REC.ANLOG 100 UNITS/ML VIAL SC SCH (20:25)
[2017-01-03] MEDS: NORMAL SALINE 1,000 ML IV PRN (02:06)
[2017-01-03] MEDS: metroNIDAZOLE/SODIUM CHLORIDE 500 MG/100 ML BAG IV SCH ×3 (04:36→20:21)
[2017-01-03] MEDS: INSULIN ASPART 100 UNITS/ML VIAL SC SCH ×3 (07:17→16:58)
[2017-01-03 07:31] LABS: Hematocrit 26.2 % (42.0-52.0); Mean Cell Volume 94.2 fl (78-100); Mean Corpuscular Hemoglobin 27.7 pg (27-31); Mean Corpuscular Hgb Conc 29.4 g/dl (32-36); Mean Platelet Volume 9.8 fl (6.0-9.5); Platelet Count 116 K/mm3 (150-450); Red Blood Count 2.78 M/mm3 (4.7-6.0); Red Cell Distribution Width 19.4 % (11.5-14.0); White Blood Count 172.2 K/mm3 (4.0-10.5)
[2017-01-03 07:34] LABS: Hemoglobin 7.7 gm/dL (13.5-18.0)
[2017-01-03 07:36] LABS: Total Cells Counted 100
[2017-01-03 07:43] LABS: Anion Gap 16.8 mmol/L (6.8-13.8); BUN/Creatinine Ratio 21.5 (9.0-21.6); Calcium * 7.3 mg/dL (7.9-10.9); Carbon Dioxide 15.6 mmol/L (24-32.6); Potassium 3.4 mmol/L (3.4-4.6)
--- NOTE | 2017-01-03 08:07 | PN ---
Progess Note - Interim Narrative: 01/03/17 08:05 Clinically feel better. He says his diarrhea is less in volume and frequency. Hb down 7.7 but patient is no longer dizzy and SOB. will defer BT for now. [facility]
[2017-01-03] MEDS: POTASSIUM CHLORIDE 20 MEQ in 0.5 NORMAL SALINE 1,000 ML IV SCH ×2 (09:00→19:11)
[2017-01-03] MEDS: ENOXAPARIN SODIUM 40 MG/0.4 ML SYRG SC SCH (09:00)
[2017-01-03] MEDS: FERROUS SULFATE 325 MG TABLET PO SCH ×2 (09:09→20:22)
[2017-01-03] MEDS: FLUoxetine HCL 20 MG CAPSULE PO SCH (09:09)
[2017-01-03] MEDS: SACCHAROMYCES BOULARDII 250 MG CAPSULE PO SCH ×2 (09:09→20:22)
[2017-01-03] MEDS: FLUCONAZOLE 200 MG TABLET PO SCH (09:09)
[2017-01-03] MEDS: PATIENT'S OWN MEDICATION 1 DOSE DOSE PO SCH (09:10)
[2017-01-03] MEDS: SODIUM BICARBONATE 650 MG TABLET PO SCH ×2 (09:12→20:22)
[2017-01-03] MEDS: CHOLECALCIFEROL 1,000 UNIT CAPSULE PO SCH (09:13)
[2017-01-03 10:12] LABS: Atypical (Reactive) Lymph 24 % (0-2); Hypochromia Trace; Lymphocyte 73 % (20-51); Macrocytosis Trace; Monocyte 2 % (0-9); Neutrophil 1 % (42-75); Neutrophil # 1.7 K/mm3 (1.3-6.0); Platelet Estimate Decreased (NORMAL); Target Cells Trace
[2017-01-03] MEDS: INSULIN GLARGINE,HUM.REC.ANLOG 100 UNITS/ML VIAL SC SCH (20:20)
[2017-01-04] MEDS: POTASSIUM CHLORIDE 20 MEQ in 0.5 NORMAL SALINE 1,000 ML IV SCH ×2 (04:40→18:47)
[2017-01-04] MEDS: metroNIDAZOLE/SODIUM CHLORIDE 500 MG/100 ML BAG IV SCH ×2 (04:40→13:03)
--- NOTE | 2017-01-04 06:58 | PN ---
Subjective - Date and Time Seen Date: 01/04/17 Time: 06:53 Subjective Narrative: This progress notes is for 01/03/17.. I saw and examined the patient but forgot to do my Progress notes. Objective - Review of Systems Generalized/Overall Review: Reports: Weakness. Denies: Chills, Fever EENTM: Reports: No Symptoms Reported Respiratory: Denies: Cough, Shortness of Breath Cardiac: Denies: Chest Pain, Palpitations Abdominal: Reports: Diarrhea. Denies: Nausea, Vomiting, Abdominal Pain Genitourinary Symptoms: Denies: Urgency, Frequency Musculoskeletal Complaints: Reports: Joint Pain - Vitals Vitals: Last Vital Signs Temp 36.5 C 01/04/17 03:00 Pulse 81 01/04/17 03:00 Resp 16 01/04/17 03:00 BP 119/61 01/04/17 03:00 Pulse Ox 99 01/04/17 03:00 - Abnormal Lab Findings Abnormal Lab Findings: Abnormal Lab Results 01/03/17 01/03/17 Range/Units 07:20 07:20 WBC 172.2 H (4.0-10.5) K/mm3 RBC 2.78 L (4.7-6.0) M/mm3 Hgb 7.7 L* (13.5-18.0) gm/dL Hct 26.2 L (42.0-52.0) % MCHC 29.4 L (32-36) g/dl RDW 19.4 H (11.5-14.0) % Plt Count 116 L (150-450) K/mm3 MPV 9.8 H (6.0-9.5) fl Neutrophils % (Manual) 1 L (42-75) % Lymphocytes % (Manual) 73 H (20-51) % Lymphocytes # (Manual) 125.7 H (1.5-3.5) k/mm3 Monocytes # (Manual) 3.4 H (0.0-1.0) k/mm3 Atypic/Reactive Lymphs 24 H (0-2) % Platelet Estimate Decreased L (NORMAL) Sodium 145 H (132-142) mmol/L Plasma Sodium 145 H (130-142) mmol/L Chloride 116 H (97-106) mmol/L Carbon Dioxide 15.6 L (24-32.6) mmol/L Anion Gap 16.8 H (6.8-13.8) mmol/L BUN 46 H (6-23) mg/dL Creatinine 2.14 H D (0.4-1.4) mg/dL Est GFR (Non-Af Amer) 33 L D (60-130) mL/min Random Glucose 117 H D (70-110) mg/dL Calcium 7.3 L (7.9-10.9) mg/dL - Exam Constitutional: Present: Alert, Oriented x3, Cooperative ENT Exam: Present: hearing grossly normal Neck: Present: supple Breasts: Present: Exam deferred Respiratory: Present: decreased breath sounds, No rales, No wheezing Cardiovascular/Chest: Present: regular rate, rhythm, no JVD, no murmur Abdomen: Present: Normal bowel sounds, soft, nontender, nondistended Extremity: Present: no calf tenderness, pedal edema Assessment/Plan - Problems/Diagnosis (1) C. difficile diarrhea Problem: Acute Narrative: continue with IV Flagyl. (2) Dehydration Problem: Acute Narrative: improved. continue with IVF. Diarrhea is down in frequency and volume. (3) [id number] kidney injury Problem: Acute Qualifiers: Acute renal failure type: unspecified Chronic kidney disease stage: stage 4 (severe) Qualified Code(s): N17.9 - Acute kidney failure, unspecified; N18.4 - Chronic kidney disease, stage 4 (severe) Narrative: improved GFR, Cr trending down. continue with IVF. (4) UTI (urinary tract infection) Problem: Acute Narrative: conintue with IV antibiotics (5) Nephrostomy status Problem: Chronic (6) CLL (chronic lymphocytic leukemia) Problem: Chronic Narrative: counts has been trneding down (7) Anemia Problem: Chronic Qualifiers: Anemia type: unspecified type Qualified Code(s): D64.9 - Anemia, unspecified Narrative: will monitor. likely his baseline after rehydration. anemia of chronic disease- CLL.
[2017-01-04 07:15] LABS: Hematocrit 24.9 % (42.0-52.0); Mean Cell Volume 95.8 fl (78-100); Mean Corpuscular Hemoglobin 27.7 pg (27-31); Mean Corpuscular Hgb Conc 28.9 g/dl (32-36); Mean Platelet Volume 10.5 fl (6.0-9.5); Platelet Count 108 K/mm3 (150-450); Red Cell Distribution Width 19.5 % (11.5-14.0); White Blood Count 146.9 K/mm3 (4.0-10.5)
[2017-01-04 07:19] LABS: Hemoglobin 7.2 gm/dL (13.5-18.0)
[2017-01-04 07:20] LABS: Total Cells Counted 100
[2017-01-04 07:24] LABS: Anion Gap 15.9 mmol/L (6.8-13.8); BUN/Creatinine Ratio 19.1 (9.0-21.6); Calcium * 6.9 mg/dL (7.9-10.9); Carbon Dioxide 15.2 mmol/L (24-32.6); Estimated Creat Clear 43.3; Potassium 4.1 mmol/L (3.4-4.6)
[2017-01-04] MEDS: INSULIN ASPART 100 UNITS/ML VIAL SC SCH ×3 (07:33→16:31)
[2017-01-04 07:44] LABS: Lymphocyte 98 % (20-51); Monocyte 1 % (0-9); Neutrophil 1 % (42-75); Neutrophil # 1.5 K/mm3 (1.3-6.0); Platelet Estimate Decreased (NORMAL)
[2017-01-04 07:45] LABS: Smudge Cells 15 /100 WBC (0-0)
[2017-01-04 07:46] LABS: Hypochromia 1+
[2017-01-04 07:49] LABS: Anisocytosis 1+
[2017-01-04] MEDS: FLUCONAZOLE 200 MG TABLET PO SCH (09:09)
[2017-01-04] MEDS: FERROUS SULFATE 325 MG TABLET PO SCH (09:09)
[2017-01-04] MEDS: FLUoxetine HCL 20 MG CAPSULE PO SCH (09:09)
[2017-01-04] MEDS: ENOXAPARIN SODIUM 40 MG/0.4 ML SYRG SC SCH (09:09)
[2017-01-04] MEDS: CHOLECALCIFEROL 1,000 UNIT CAPSULE PO SCH (09:09)
[2017-01-04] MEDS: SODIUM BICARBONATE 650 MG TABLET PO SCH (09:09)
[2017-01-04] MEDS: SACCHAROMYCES BOULARDII 250 MG CAPSULE PO SCH (09:09)
[2017-01-04] MEDS: PATIENT'S OWN MEDICATION 1 DOSE DOSE PO SCH (09:10)
[2017-01-04 10:46] LABS: Iron 24 mcg/dL (35-120); Transferrin Sat. (% Sat.) 12 % (15-55)
[2017-01-04 11:13] LABS: Folate 6.4 ng/mL (<3.4 - >5.4)
[2017-01-04] MEDS ORDERED: IRON SUCROSE COMPLEX 100 MG in NORMAL SALINE 100 ML IV SCH (11:30)
[2017-01-04] MEDS ORDERED: CEFEPIME HCL 1 GM in DEXTROSE 5 % IN WATER 100 ML IV SCH ×2 (12:00)
--- NOTE | 2017-01-04 14:48 | DS ---
Transfer Discharge Summary - Diagnosis(s)/Problems (1) [id number] kidney injury Narrative: Acute on CRF , prerenal . Cr improve to 1.78 after IVF. Problem: Acute (2) Dehydration Narrative: continue with IVF as he still has diarrhea from C. Diff colitis. Problem: Acute (3) UTI (urinary tract infection) Narrative: UCS growing Klebsiella Pneumonoae and Pseudomonas Aeroginosa. changed to IV cefepime. Problem: Acute (4) C. difficile diarrhea Narrative: will change to oral Flagyl now. consider oral vancomycin if no improvement in 3 -5 days. 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 Problem: Acute (5) Nephrostomy status Problem: Chronic (6) CLL (chronic lymphocytic leukemia) Problem: Chronic (7) Anemia Narrative: likely anemia of chronic disease- CLL. Was 9.4 on admission and now 7.2 but patient is no longer orthostatic after IVF and despite Hb of 7.2. he was likely hemoconcentred due to his dehydration . will defer BT until 7 or below. IV venofer given as Iron was low. Problem: Chronic - Course Description of Stay: Krish Henson is a 66-yr-old WM pt who normally receives most of his medical care at the [facility] in [place] who was admitted on 01/01/17 for weakness, SOB, diarrhea. His PMH involves: Anemia, C-diff, Chronic Lymphocytic Leukemia ( currently on Ibrutinib, since 2013), CKD Stage III, DM Type I, Degenerative disc joint disease, Diverticulits, Kidney Stone s/p RT & LT Nephrostomy tubes and Suprapubic catheter 2016, Peripheral Neuropathy, Recurrent UTIs. Pt reports that he has had diarrhea that has been going on for about 2 months. But for the the last 4-5 days, he states that he has had progressive weakness & SOB. He states that he was seen at the [facility] ER on 12/20/16 following advise from his PCP about his labwork that needed to be rechecked. He was found to have Hyperkalemia and he was transferred to the [facility] as there was no bed availability at the [facility]. Pt's Spouse Nancy, reports that while at the [facility], Mr. Henson was treated with "Strong antibiotics" but is uncertain about the type of antibiotic and the reason for treatment. She states that he has received numerous treatments with antibiotics due to recurrent UTI and was last hospitalized for UTI at the [facility] in December 2016. Mr. Henson reports that his diarrhea is accompanied by abdominal pain at times. He denies nausea, but had some vomiting once yesterday. He states that he cannot tolerate solid foods which causes him to have more diarrhea and abdominal pain, but he does well with the liquids. He denied fevers and chills. During evaluation at the ED , his lab- work was remarkable for Acute on Chronic Kidney Disease, UTI & High WBC. His stool also tested positive for C-diff. The ERP spoke with the [facility] and there were no beds available tonight. He was admitted under observation status due to Dehydration and for IV Antibiotics until there is availability at the [facility] hospital. His Hb was 9.4 on admission and went down to 7.2. He is not orthostatic or symptomatic with the latest Hb as compared to his admission making me believe that this is usual baseline. His iron was low IV venofer was started. BT was deferred unless it goes down to 7 and below. His Cr improved from 3.26 to 1.78 with rehydration. He was started on IV Flagyl for C. difficile colitis and IV rocephin for UTI. His UCS grew klebsiella pneumoniae and Pseudomonas aeroginosa and his antibiotic was changed to IV Cefepime. He is stable to be transferred to [facility]. Procedures Performed: none - Results and Findings Results and Findings: Laboratory Results - last 24 hr 01/04/17 01/04/17 01/04/17 07:00 07:00 07:00 WBC 146.9 H RBC 2.60 L Hgb 7.2 L* Hct 24.9 L MCV 95.8 MCH 27.7 MCHC 28.9 L RDW 19.5 H Plt Count 108 L MPV 10.5 H Neutrophils % (Manual) 1 L Lymphocytes % (Manual) 98 H Monocytes % (Manual) 1 Neutrophils # (Manual) 1.5 Lymphocytes # (Manual) 144.0 H Monocytes # (Manual) 1.5 H Smudge Cells 15 H Platelet Estimate Decreased L Hypochromasia 1+ Anisocytosis 1+ Sodium 141 Plasma Sodium 141 Potassium 4.1 D Chloride 114 H Carbon Dioxide 15.2 L Anion Gap 15.9 H BUN 34 H Creatinine 1.78 H Est GFR (Non-Af Amer) 41 L D BUN/Creatinine Ratio 19.1 Random Glucose 100 Calcium 6.9 L Iron 24 L TIBC 202 L Transferrin % Sat 12 L Ferritin Vitamin B12 Folate 01/04/17 07:00 WBC RBC Hgb Hct MCV MCH MCHC RDW Plt Count MPV Neutrophils % (Manual) Lymphocytes % (Manual) Monocytes % (Manual) Neutrophils # (Manual) Lymphocytes # (Manual) Monocytes # (Manual) Smudge Cells Platelet Estimate Hypochromasia Anisocytosis Sodium Plasma Sodium Potassium Chloride Carbon Dioxide Anion Gap BUN Creatinine Est GFR (Non-Af Amer) BUN/Creatinine Ratio Random Glucose Calcium Iron TIBC Transferrin % Sat Ferritin 129 Vitamin B12 479 Folate 6.4 H - Medications Medications: Active Medications Cholecalciferol (Vitamin D) 2,000 unit PO DAILY [facility] Stop: 02/01/17 09:01 Last Admin: 01/04/17 09:09 Dose: 2,000 unit Enoxaparin Sodium (Lovenox) 40 mg SC Q24H [facility] Stop: 02/02/17 08:01 Last Admin: 01/04/17 09:09 Dose: 40 mg Ferrous Sulfate (Ferrous Sulfate) 325 mg PO BID [facility] Stop: 01/31/17 21:01 Last Admin: 01/04/17 09:09 Dose: 325 mg Fluconazole (Diflucan) 200 mg PO DAILY [facility] Stop: 01/12/17 09:01 Last Admin: 01/04/17 09:09 Dose: 200 mg Fluoxetine HCl (Prozac) 40 mg PO DAILY [facility] Stop: 02/01/17 09:01 Last Admin: 01/04/17 09:09 Dose: 40 mg Metronidazole (Flagyl) 500 mg in 100 mls @ 100 mls/hr IV Q8H [facility] PRN Reason: Protocol Stop: 01/31/17 21:16 Last Admin: 01/04/17 13:03 Dose: 100 mls/hr Potassium Chloride 20 meq/ (Sodium Chloride) 1,010 mls @ 125 mls/hr IV .Q8H5M [facility] Stop: 02/02/17 08:01 Last Admin: 01/04/17 04:40 Dose: 125 mls/hr Cefepime HCl 1 gm/ Dextrose/ (Water) 100 mls @ 200 mls/hr IV Q12H [facility] Stop: 02/03/17 12:01 Last Admin: 01/04/17 11:47 Dose: 200 mls/hr Iron Sucrose 100 mg/ Sodium (Chloride) 105 mls @ 200 mls/hr IV DAILY [facility] Stop: 02/03/17 11:31 Last Admin: 01/04/17 12:23 Dose: 200 mls/hr Insulin Aspart (Novolog) 0 units SC ACINS [facility] PRN Reason: Protocol Stop: 02/01/17 17:01 Last Admin: 01/04/17 11:47 Dose: Not Given Insulin Glargine (Lantus) 2 units SC HS [facility] Stop: 01/31/17 21:01 Last Admin: 01/03/17 20:20 Dose: Not Given Patient Own Medication (Patient's Own Medication) 1 dose PO DAILY [facility] Stop: 02/01/17 11:01 Last Admin: 01/04/17 09:10 Dose: 1 dose Saccharomyces Boulardii (Florastor) 250 mg PO BID [facility] Stop: 02/01/17 11:46 Last Admin: 01/04/17 09:09 Dose: 250 mg Sodium Bicarbonate (Sodium Bicarbonate) 1,300 mg PO BID [facility] Stop: 01/31/17 21:01 Last Admin: 01/04/17 09:09 Dose: 1,300 mg Discontinued Medications Sodium Chloride (Sodium Chloride 0.9%) 1,000 mls @ 999 mls/hr IV .Q1H1M [facility] Stop: 01/01/17 17:25 Last Admin: 01/01/17 17:08 Dose: 999 mls/hr Ceftriaxone Sodium 1,000 mg/ (Dextrose/Water) 100 mls @ 200 mls/hr IV ONCE ONE PRN Reason: Protocol Stop: 01/01/17 18:09 Last Infusion: 01/01/17 18:50 Dose: Infused Sodium Chloride (Sodium Chloride 0.9%) 1,000 mls @ 125 mls/hr IV .Q8H PRN PRN Reason: HYDRATION Stop: 01/31/17 20:24 Last Infusion: 01/03/17 10:06 Dose: Infused Ceftriaxone Sodium 1,000 mg/ (Dextrose/Water) 100 mls @ 200 mls/hr IV Q24H [facility] PRN Reason: Protocol Stop: 02/01/17 09:01 Last Admin: 01/04/17 09:09 Dose: 200 mls/hr Insulin Aspart (Novolog) 10 units SC ACINS [facility] Stop: 02/01/17 07:01 Last Admin: 01/02/17 11:46 Dose: Not Given - Disposition Disposition: Other health care facility Condition: Stable Discharge Date: 01/04/17
[2017-01-04] MEDS ORDERED: metroNIDAZOLE/SODIUM CHLORIDE 500 MG/100 ML BAG IV SCH (16:30)
[2017-01-04] MEDS ORDERED: metroNIDAZOLE 500 MG TABLET PO SCH (17:00)
[2017-01-04 19:13] VITALS: BP 124/62
--- NOTE | 2017-01-08 01:34 | PN ---
Subjective - Date and Time Seen Date: 01/02/17 Time: 06:00 Subjective Narrative: Mr. Henosn examined this am. Reports continued diarrhea in the night. No acute events during the night. Objective - Vitals Vitals: Last Vital Signs Temp 37.4 C 01/04/17 19:00 Pulse 79 01/04/17 19:00 Resp 16 01/04/17 19:00 BP 124/62 01/04/17 19:00 Pulse Ox 100 01/04/17 19:00 - Exam Constitutional: Present: Alert, Oriented x3, Cooperative, No distress, Thin and frail ENT Exam: Present: normal ENT inspection, dry mucous membranes Neck: Present: non-tender Respiratory: Present: chest non-tender, normal breath sounds, No wheezing Cardiovascular/Chest: Present: normal peripheral pulses, regular rate, rhythm, no edema Abdomen: Present: Normal bowel sounds, soft, nontender /Rectal: Present: Other - Suprapubic catheter, RT & LT Nephrostomy tubes. Extremity: Present: normal range of motion, non-tender Skin Exam: Present: warm/dry, no cyanosis Lymphatic: Present: no adenopathy Neurologic: Present: alert, oriented x 3, depressed affect Appearance: Present: appropriate appearance, appropriate insight Eye contact: Present: cooperative, good eye contact, normal speech Thoughts: Present: no apparent hallucination Assessment/Plan - Problems/Diagnosis (1) C. difficile diarrhea Problem: Acute Narrative: The pt reported ongoing diarrhea x 2 months. The diarhhea was thought to be infectious in nature at the [facility] but the C-Diff was negative. He has received treatment with Antibiotics for recurrent UTIs in the past as well as most recently in December 2016 according to spouse. Will request for medical records from the [facility]. Armando's test for stool showed he was positive for the C-diff. Will start him Flagyl 500mg IV t.i.d. He requires antibotics due to a primary infection from the UTI and therefore will continue with Rocephin and avoid other classes of Antibiotics that have been implicated with Antibiotic- associated CDI. He will continue with the CDI treatment throughout the antibiotics use. He shall remain in contact precautions. (2) UTI (urinary tract infection) Problem: Acute Narrative: The UA collected at the ED showed UTI presence but does not specify the source collection as he has RT & LT nephrostomy tubes draining into kim bags and also a suprapubic catheter. Obtain another sample from the Suprapubic catheter. Will continue with Rocephin until urine culture results. (3) Ntmhl-[id number] kidney injury Problem: Acute Qualifiers: Acute renal failure type: unspecified Chronic kidney disease stage: stage 4 (severe) Qualified Code(s): N17.9 - Acute kidney failure, unspecified; N18.4 - Chronic kidney disease, stage 4 (severe) Narrative: Pt has a history of CKD stage III, probably caused by DM I. Pt noted to have a BUN/CR of 70/3.26 and was likely worsened by the dehydration from the Diarrhea and hypovolemic volume status. Will hydrate gently with IVF. Monitor BMP in am. (4) Dehydration Problem: Acute (5) history of complicated UTI Problem: Acute Narrative: Urine sample collected from RT nephrostomy tube at the ED was high in WBC and he received Rocephin at the ED. Will collect from the Suprapubic catheter as well. Will continue with Rocephin until Urine culture results, IVF hydration. Monitor CBC in am. (6) CLL (chronic lymphocytic leukemia) Problem: Chronic Narrative: Continue Ibrutinib. CBC with diff in am. Will need hematology consult and therefore transfer to the [facility] would be necessary as there is a wider multidisciplinary team of specialists that can serve his extensive medical needs. (7) Chronic kidney disease (CKD) Problem: Chronic Qualifiers: Chronic kidney disease stage: stage 3 (moderate) Qualified Code(s): N18.3 - Chronic kidney disease, stage 3 (moderate) Narrative: Continue Bicarb Supplementation. (8) Diabetes mellitus type 1 Problem: Chronic Qualifiers: Diabetes mellitus complication status: with kidney complications Diabetes mellitus complication detail: with chronic kidney disease Chronic kidney disease stage: unspecified stage Qualified Code(s): E10.22 - Type 1 diabetes mellitus with diabetic chronic kidney disease; N18.9 - Chronic kidney disease, unspecified Narrative: Blood glucose screening ACHS. Continue SSI & Long acting insulin, and Carb consistent diet. (9) Nephrostomy status Problem: Chronic (10) Elevated brain natriuretic peptide (BNP) level Problem: Acute Narrative: Noted to have an elevated BNP of 533. The CXR did not show any sign of acute cardiopulmonary process. He reports feeling SOB with activity, but he has no sign of fluid overload- peripheral edema or rales on LS. Monitor closely given the IVF hydration he is receiving.
== END 2017-01-04 21:06 | disposition short-term general hospital (02) | DRG 372 ==
LOC: ER 15:58 → MS 17:50 → OBSVTOIN 01-02 08:53
PROVIDERS: ADMIT Internal Medicine; ATTEND Internal Medicine
DX: A04.7 Enterocolitis due to Clostridium difficile (principal); C91.10 Chronic lymphocytic leukemia of B-cell type not having achieved remission; N39.0 Urinary tract infection, site not specified; N18.4 Chronic kidney disease, stage 4 (severe); D63.0 Anemia in neoplastic disease; B96.1 Klebsiella pneumoniae [K. pneumoniae] as the cause of diseases classified elsewhere; E86.0 Dehydration; E10.22 Type 1 diabetes mellitus with diabetic chronic kidney disease; Z93.6 Other artificial openings of urinary tract status
CPT/HCPCS: 36415; 71020; 74020; 80048; 80053; 81001; 82607; 82728; 82746; 83540; 83550; 83605; 83880; 84100; 84466; 84484; 84550; 85007; 85025; 87040; 87045; 87046; 87077; 87081; 87086; 87186; 87430; 87493; 93005; 96360; 99284; G0378; J1756

== ENCOUNTER 2017-01-12 13:57 | Emergency (ER) | payer OTHER ==
[2017-01-12] MEDS ORDERED: NORMAL SALINE 1,000 ML IV ONE (14:17)
[2017-01-12 14:50] LABS: Hematocrit 28.3 % (42.0-52.0); Hemoglobin 8.2 gm/dL (13.5-18.0); Mean Corpuscular Hemoglobin 27.2 pg (27-31); Mean Platelet Volume 9.9 fl (6.0-9.5); Platelet Count 158 K/mm3 (150-450); Red Blood Count 3.01 M/mm3 (4.7-6.0); Red Cell Distribution Width 18.4 % (11.5-14.0); White Blood Count 189.8 K/mm3 (4.0-10.5)
--- NOTE | 2017-01-12 14:59 | ERNOTE ---
Medical Problem HPI - General Chief Complaint: Fever Time Seen by Provider: 01/12/17 14:04 Source: patient Exam Limitations: no limitations - Immun/Allergies/Home Medications Immunizations: IMMUNIZATION HX Immunizations Up to Date Yes History of Influenza Vaccine Yes Hx Pneumococcal Vaccination Yes Allergies/Adverse Reactions: Allergies allopurinol Allergy (Verified 01/02/17 18:08) sulfamethoxazole [From Bactrim] Allergy (Verified 01/02/17 18:08) trimethoprim [From Bactrim] Allergy (Verified 01/02/17 18:08) Home Medications: HOME MEDICATIONS Albuterol Sulfate [Proair Respiclick] 90 mcg IH QID PRN 02/21/16 [Last Taken Unknown] Cholecalciferol (Vitamin D3) [Vitamin D3] 2,000 unit PO DAILY 02/21/16 [Last Taken Unknown] FLUoxetine HCL [Prozac] 40 mg PO DAILY 02/21/16 [Last Taken Unknown] Ferrous Sulfate [Iron] 325 mg PO BID 02/21/16 [Last Taken Unknown] HYDROcodone/ACETAMINOPHEN [Lortab 5-325 mg Tablet] 1 each PO Q4H PRN 02/21/16 [ Last Taken Unknown] Ibrutinib [Imbruvica] 420 mg PO DAILY 02/21/16 [Last Taken Unknown] Insulin Glargine,Hum.rec.anlog [Lantus] 2 unit SQ HS 02/21/16 [Last Taken Unknown] Sodium Bicarbonate 1,300 mg PO BID 02/21/16 [Last Taken Unknown] Insulin Aspart [Novolog] 10 units SQ TID 12/02/16 [Last Taken Unknown] Fluconazole [Diflucan] 200 mg PO DAILY 01/01/17 [Last Taken Unknown] Vancomycin HCl 125 mg PO DAILY 01/12/17 [Last Taken Unknown] - History of Present History Narrative: Patient presents for suprapubic catheter malfunction additionally he states he feels very tired and weak over the past 48 hours. He has had nothing to eat because he feels very weak. Additionally he had a fever of 103.9 earlier on today for which she took Tylenol he denies any dysuria he has a suprapubic catheter in and 2 nephrostomies. He denies any nausea or vomiting but admits to feeling anorexic and not being hungry he has had chronic diarrhea for the past 3 months. Patient states that he feels exhausted and does not feel comfortable staying home. He has had no food for the past 2 days according to the patient. Review of Systems - Review of Systems Constitutional: Present: fever, weakness, fatigue, malaise EYE: Present: no symptoms reported ENT: Present: no symptoms reported Respiratory: Present: no symptoms reported Cardiology: Present: no symptoms reported Gastrointestinal/Abdominal: Present: no symptoms reported Genitourinary: Present: no symptoms reported Musculoskeletal: Present: no symptoms reported Skin: Present: no symptoms reported - Patient's Past Medical History Patient History - Medical: Anemia, Diabetes Type 1, Kidney stone, Renal Disease , Renal Failure, UTI'S, Other Patient History - Cardiac/Respiratory: No pertinent hx Patient History - Cancer: Leukemia, Skin Patient History - Surgical Procedures: Cancer Surgery, Urology Patient History - Other: Immunosuppresive Tx >3mo - Family History Mother Family History - Medical: No pertinent hx Family History - Cardiac/Respiratory: No pertinent hx Father Family History - Medical: No pertinent hx Family History - Cardiac/Respiratory: No pertinent hx - Social History Living Situations: home Psych History: No pertinent hx Does anyone smoke in the home?: No Smoking Status: Former smoker Alcohol Use: none Drug Use: none - Immunizations Immunizations Up to Date: Yes Hx Pneumococcal Vaccination: Yes History of Influenza Vaccine: Yes Physical Exam - Physical Exam General Appearance: Present: other - patient is a thin emaciated male older than stated age he appears tired and fatigued he is in no acute respiratory distress Ears, Nose, Throat: Present: normal ENT inspection Neck: Present: normal inspection, nontender Respiratory: Present: no respiratory distress, normal breath sounds, no accessory muscle use, chest nontender, lungs clear Cardiovascular/Chest: Present: regular rate, rhythm, no murmur, normal peripheral pulses Gastrointestinal/Abdominal: Present: normal bowel sounds, nontender, nondistended, soft, other - abdomen is very thin suprapubic catheter is noted in place upon flushing the suprapubic catheter fluid comes out from around the tube. No redness of the skin around the ostomy noted. Suprapubic catheter was changed in the room as it was blocked and was not flushing properly. Male Genitals Exam: Present: normal genitalia - genitalia is circumcised no anomalies noted Extremity Exam: Present: normal inspection Neurological Exam: Present: alert, oriented, normal mood/affect ED Progress - Results and Orders Patient's Lab Results:: I have reviewed the patient's lab results. - Vital Signs Patient's Vital Signs:: I have reviewed the patient's vital signs. Vital Signs: Vital Signs 01/12/17 14:06 Temperature 36.4 C L Pulse Rate 98 Respiratory 16 Rate Blood Pressure 88/49 O2 Sat by Pulse 99 Oximetry - X-Ray X-Ray #1 X-Ray: chest - Progress/Reassessment Chief Complaint: Fever Plan - Plan Plan: This patient has a history of chronic lymphocytic leukemia and his white count is elevated. Additionally he had a fever for source of which I believe is the urine. This patient has a urinary tract infection coupled with extreme lethargy and fatigue and unable to be sent home with oral antibiotics and needs to be hospitalized for IV antibiotics and care. At this time date at [facility] in [place] was consult. And all paperwork's were forwarded to Peter. Dr. Kimble returned our call and accepted the patient to their facility for diagnosis of urinary tract infection and extreme lethargy. She responded well to IV fluids and blood pressure improved to 108 systolic He was given Levaquin 500 mg IV here in the ER and he will be transferred to [facility] in [place]. Departure - Departure Clinical Impression: Lethargy UTI (urinary tract infection) Qualifiers: Urinary tract infection type: site unspecified Hematuria presence: with hematuria Qualified Code(s): N39.0 - Urinary tract infection, site not specified Disposition: Other health care facility Condition: Good
[2017-01-12 15:02] LABS: Total Cells Counted 100
[2017-01-12 15:03] LABS: Albumin * 2.9 gm/dl (3.4-5.0); Anion Gap 16.7 mmol/L (6.8-13.8); BUN/Creatinine Ratio 9.3 (9.0-21.6); Bilirubin, Total 0.5 mg/dL (0.0-1.1); CRP 3.3 mg/dL (0.0-0.9); Ca. Corrected For Albumin 8.9 mg/dL (8.4-10.2); Calcium * 8.3 mg/dL (7.9-10.9); Carbon Dioxide 21.1 mmol/L (24-32.6); Potassium 4.8 mmol/L (3.4-4.6); Total Protein 6.2 gm/dL (6.2-8.2)
[2017-01-12 15:19] LABS: Lymphocyte 98 % (20-51); Monocyte 2 % (0-9); Platelet Estimate Normal (NORMAL)
[2017-01-12 15:22] LABS: Anisocytosis 3+
[2017-01-12 15:23] LABS: Spherocyte 2+
[2017-01-12] MEDS ORDERED: NORMAL SALINE 1,000 ML IV PRN ×2 (15:25→16:31)
[2017-01-12 15:26] LABS: Absolute Neutrophil Count 0.7 /mm3 (0.0-28.0)
[2017-01-12 15:28] LABS: Urine Appearance Cloudy; Urine Bilirubin Negative (NEGATIVE); Urine Color Yellow; Urine Ketone Negative (NEGATIVE)
[2017-01-12 15:30] LABS: Urine Blood 250 /ul (NEGATIVE); Urine Specific Gravity 1.015 SP.GR. (1.005-1.030)
[2017-01-12 15:31] LABS: Urine Nitrite Positive (NEGATIVE); Urine Urobilinogen Normal (NORMAL)
[2017-01-12 15:32] LABS: Urine Protein 100 mg/dL (NEGATIVE); Urine pH 6.5 pH (5.0-7.0)
[2017-01-12 15:33] LABS: Urine Bacteria 3+; Urine RBC >50 /hpf (0-5); Urine WBC >50 /hpf (0-5)
[2017-01-12] MEDS ORDERED: LEVOFLOXACIN/D5W 500 MG/100 ML BAG IV SCH (16:00)
[2017-01-12 17:15] VITALS: BP 108/61
== END 2017-01-12 19:00 | disposition short-term general hospital (02) ==
LOC: ER 13:57
DX: R53.83 Other fatigue (principal); N39.0 Urinary tract infection, site not specified; Z87.442 Personal history of urinary calculi; Z87.440 Personal history of urinary (tract) infections; Z85.828 Personal history of other malignant neoplasm of skin; Z85.6 Personal history of leukemia; Z87.891 Personal history of nicotine dependence; D64.9 Anemia, unspecified; E10.9 Type 1 diabetes mellitus without complications; Z79.4 Long term (current) use of insulin